=== PATIENT | female | born 1975 | race Caucasian/White ===

== ENCOUNTER 2025-06-30 07:36 | Day surgery (SDC) | payer BC ==
[~2025-06-30 07:36] MED LIST: Sodium Chloride 0.9% 10 ML Syringe FLUSH PRN; Sodium Chloride 0.9% 2.5 ML Syringe FLUSH PRN
[2025-06-30] MEDS: Lactated Ringers 1,000 ML IV SCH (08:07)
[2025-06-30] MEDS ORDERED: propofoL 500 MG/50 ML 50 ML ONE (08:27)
== END 2025-06-30 10:25 | disposition home or self-care (01) ==
LOC: MW.SDS 07:36
PROVIDERS: ATTEND Surgery
DX: Z12.11 Encounter for screening for malignant neoplasm of colon (principal); Z83.719 Family history of colon polyps, unspecified; E66.9 Obesity, unspecified; F32.A Depression, unspecified; Z88.2 Allergy status to sulfonamides; Z79.899 Other long term (current) drug therapy
CPT/HCPCS: 45378; J2003; J2704; J7120